=== PATIENT | female | born 1995 | race Caucasian/White ===

== ENCOUNTER 2021-08-18 11:35 | Emergency (ER) | payer OTHER, SELFPAY ==
[2021-08-18 11:49] VITALS: BP 109/77; PULSE 72; RESP 16; TEMP 37.1; O2SAT 99; BMI 24.3
[2021-08-18] MEDS: MECLIZINE HCL 12.5 MG TABLET 50 MG PO (14:13)
[2021-08-18] MEDS: KETOROLAC 30 MG/ML VIAL 15 MG IM (14:13)
--- NOTE | 2021-08-18 14:29 | ED_ITS ---
HPI - Neck Pain/Injury <Bertha Corado PA-C - Last Filed: 08/18/21 18:04> General Chief Complaint: Neck Pain/Injury Stated Complaint: Neck pain x 2 days Time Seen by Provider: 08/18/21 13:41 Mode of arrival: Ambulatory History of Present Illness HPI Narrative: 25-year-old female with no reported past medical history presents to the ED with 3 days of neck pain. Patient states that she got up too quickly from a supine position, had onset of neck pain immediately. Patient has taken Tylenol and ibuprofen without any relief. Patient denies any other trauma. Patient endorses paraspinal muscle pain that goes from the base of her head all the way down to her shoulder. Pain is bilateral. Denies numbness, tingling, weakness. Denies fever, chills, chest pain, shortness of breath, cough. Related Data Previous Rx's Medication Instructions Recorded cyclobenzaprine 10 mg tablet 10 mg PO TID PRN 3 Days #10 tab 08/18/21 oxycodone-acetaminophen 2.5 mg-325 1 tab PO Q8H PRN 2 Days #7 tab 08/18/21 mg tablet (Percocet) Allergies Allergy/AdvReac Type Severity Reaction Status Date / Time No Known Drug Allergies Allergy Verified 08/18/21 11:49 Review of Systems <Bertha Corado PA-C - Last Filed: 08/18/21 18:04> Review of Systems ROS Unobtainable: All systems reviewed & are unremarkable except as noted in HPI and below Constitutional Constitutional: Denies chills, Denies fatigue, Denies fever(s), Denies frequent falls, Denies lethargy and Denies weakness Eyes Eyes: Denies change in vision, Denies eye discharge, Denies irritation and Denies loss of vision ENT Ears, Nose, Mouth, and Throat: Denies change in voice, Denies dizziness, Reports neck pain, Denies sore throat and Denies throat swelling Cardiovascular Cardiovascular: Denies chest pain, Denies irregular heart rhythm, Denies lightheadedness, Denies palpitations, Denies dyspnea, Denies dyspnea on exertion and Denies orthopnea Respiratory Respiratory: Denies cough, Denies dyspnea, Denies dyspnea on exertion and Denies wheezing Gastrointestinal Gastrointestinal: Denies abdominal pain, Denies change in bowel habits, Denies diarrhea, Denies nausea and Denies vomiting Genitourinary Genitourinary: Denies hematuria, Denies flank pain, Denies urinary incontinence and Denies urinary urgency Musculoskeletal Musculoskeletal: Denies back pain, Denies muscle weakness, Reports neck pain, Denies numbness and Denies tingling Integumentary/Breasts Skin/Breast: Denies pruritus, Denies erythema, Denies rash and Denies wounds Neurologic Neurologic: Denies behavioral changes, Denies confusion, Denies dizziness, Denies frequent falls, Denies loss of vision, Denies numbness, Denies tingling and Denies weakness Psychiatric Psychiatric: Denies anxiety, Denies behavioral changes, Denies confusion, Denies depression, Denies homicidal ideation and Denies suicidal ideation Endocrine Endocrine: Denies fatigue, Denies flushing and Denies palpitations Hematologic/Lymphatic Hematologic/Lymphatic: Denies easy bruising Allergic/Immunologic Allergic/Immunologic: Denies urticaria, Denies throat swelling and Denies wheezing Patient History <Bertha Corado PA-C - Last Filed: 08/18/21 18:04> Social History Smoking Status: Current every day smoker Smoking Status: Current every day smoker tobacco type: vaping alcohol intake frequency: a few times a week Substance Use Type: marijuana Exam <Bertha Corado PA-C - Last Filed: 08/18/21 18:04> Initial Vital Signs Initial Vital Signs: Vital Signs Temperature 98.7 F 08/18/21 11:49 Pulse Rate 72 08/18/21 11:49 Respiratory Rate 16 08/18/21 11:49 Blood Pressure 109/77 08/18/21 11:49 Pulse Oximetry 99 08/18/21 11:49 Const General: cooperative, healthy appearing and comfortable [facility] [place] Head: normal to inspection and normocephalic Ears: hearing grossly normal bilaterally Throat: posterior oropharynx normal Eyes General: appearance normal, both eyes and all related structures Neck Neck: normal visual inspection, full ROM, no meningeal signs and supple Other: Bilateral paraspinal neck tenderness Resp Effort & Inspection: normal respiratory effort Auscultation: clear to auscultation bilaterally Cardio Rate: regular rate Rhythm: regular rhythm Back/Spine/Pelvis Back: normal to inspection and No back tenderness Other: No midline tenderness Skin General: no rashes or lesions noted Neuro General: patient alert, patient awake and patient oriented x3 Psych Appearance: grossly normal Mental Status: mental status grossly normal <Jarod Torres DO - Last Filed: 08/18/21 18:12> Initial Vital Signs Initial Vital Signs: Vital Signs Temperature 98.7 F 08/18/21 11:49 Pulse Rate 72 08/18/21 11:49 Respiratory Rate 16 08/18/21 11:49 Blood Pressure 109/77 08/18/21 11:49 Pulse Oximetry 99 08/18/21 11:49 Course <Bertha Corado PA-C - Last Filed: 08/18/21 18:04> Orders Ordered: Discontinued Medications Ketorolac Tromethamine (Ketorolac 30 Mg/Ml Vial) 15 mg IM NOW ONE Stop: 08/18/21 14:03 Last Admin: 08/18/21 14:13 Dose: 15 mg Documented by: ERMELINDA Meclizine HCl (Meclizine Hcl 12.5 Mg Tablet) 50 mg PO NOW ONE Stop: 08/18/21 14:03 Last Admin: 08/18/21 14:13 Dose: 50 mg Documented by: ERMELINDA Oxycodone/Acetaminophen (Oxycodone/Acetaminophen 5/325 Tablet) 1 tab PO NOW ONE Stop: 08/18/21 14:54 Last Admin: 08/18/21 15:25 Dose: 1 tab Documented by: RAISSA Vital Signs Vital signs: Vital Signs - 8 hr 08/18/21 11:49 08/18/21 16:03 Temperature 98.7 F Pulse Rate 72 74 Respiratory Rate 16 Blood Pressure 109/77 107/65 Pulse Oximetry 99 99 <Jarod Torres DO - Last Filed: 08/18/21 18:12> Orders Ordered: Discontinued Medications Ketorolac Tromethamine (Ketorolac 30 Mg/Ml Vial) 15 mg IM NOW ONE Stop: 08/18/21 14:03 Last Admin: 08/18/21 14:13 Dose: 15 mg Documented by: ERMELINDA Meclizine HCl (Meclizine Hcl 12.5 Mg Tablet) 50 mg PO NOW ONE Stop: 08/18/21 14:03 Last Admin: 08/18/21 14:13 Dose: 50 mg Documented by: ERMELINDA Oxycodone/Acetaminophen (Oxycodone/Acetaminophen 5/325 Tablet) 1 tab PO NOW ONE Stop: 08/18/21 14:54 Last Admin: 08/18/21 15:25 Dose: 1 tab Documented by: RAISSA Vital Signs Vital signs: Vital Signs - 8 hr 08/18/21 11:49 08/18/21 16:03 Temperature 98.7 F Pulse Rate 72 74 Respiratory Rate 16 Blood Pressure 109/77 107/65 Pulse Oximetry 99 99 MDM - Neck Pain/Injury <Bertha Corado PA-C - Last Filed: 08/18/21 18:04> [facility] Narrative Medical decision making narrative: 25-year-old female with no reported past medical history presents to the ED with 3 days of neck pain. Concern for cervical radiculopathy versus musculoskeletal sprain/strain. Will treat with Flexeril and Toradol. Will reassess. Patient's pain improved with ketorolac, Flexeril, Percocet. Discharge patient with prescriptions for Flexeril and Percocet. ED return precautions discussed. Patient verbalized understanding. Patient will follow-up with PCP. Discharge Plan Departure Patient Disposition: Home Clinical Impression: Strain of neck muscle Instructions: DI for Neck Pain Activity Restrictions/Additional Instructions: You were evaluated in the ED today for neck pain. Your symptoms are likely due to a neck sprain/strain. Your pain responded well to cyclobenzaprine, Percocet, Toradol. You may continue to take cyclobenzaprine, Percocet for the next 2 days. Please follow-up with your PCP as soon as possible. Return to the ED if symptoms worsen, you feel numbness, tingling, weakness. Prescriptions: New oxycodone-acetaminophen [Percocet] 2.5-325 mg tablet 1 tab PO Q8H PRN (Reason: pain) 2 Days Qty: 7 0RF cyclobenzaprine 10 mg tablet 10 mg PO TID PRN (Reason: muscle spasm) 3 Days Qty: 10 0RF <Jarod Torres DO - Last Filed: 08/18/21 18:12> [facility] ED Attending Cosignature Attestation: Dr Torres Co-Sign Statement: I was available for consultation during this jany villar's emergency department visit. This chart is signed by myself for administrative purposes only. I did not have direct contact with this patient during this visit. They were seen independently by the APC.
[2021-08-18] MEDS: OXYCODONE/ACETAMINOPHEN 5/325 TABLET 1 TAB PO (15:25)
[2021-08-18 16:03] VITALS: BP 107/65; PULSE 74; O2SAT 99
== END 2021-08-18 16:04 | disposition home or self-care (01) ==
PROVIDERS: Emergency Provider Student in an Organized Health Care Education/Training Program
DX: S16.1XXA Strain of muscle, fascia and tendon at neck level, initial encounter (principal); X58.XXXA Exposure to other specified factors, initial encounter
CPT/HCPCS: 96372; 99283; J1885